=== PATIENT | female | born 1975 | race Caucasian/White ===

== ENCOUNTER 2017-09-18 10:31 | Emergency (ER) | payer BC ==
[~2017-09-18 10:31] MED LIST: AMOX500C PO
--- NOTE | 2017-09-18 11:39 | PD ---
HPI Chief Complaint low back pain and vaginal bleeding Date Seen: Sep 18, 2017 Time Seen: 11:00 Travel History International Travel<30 Days: No Contact w/Intl Traveler<30Days: No Known Affected Area: No History of Present Illness HPI Ms. Phelan is a 42 yo F patient of [facility] at 36 3/7 weeks who presents with to OB ED for evaluation of vaginal bleeding, abdominal cramping, and low back pain. Patient states that she noticed "gush" of bright red vaginal bleeding at 7:30am today; she estimates 3 tablespoons of blood. Patient has not had persistent bleeding since; she describes this being the first time that she has noticed vaginal bleeding. After this episode, patient began to have low back pain and frequent abdominal cramping which she describes as similar to menstrual cramps. Patient also reports feeling abdominal contractions frequently. No vaginal discharge or loss of vaginal fluid. Patient also reports decreased movement beginning this morning. Patient does not report headache, chest pain, shortness of breath, nausea, abnormal bowel movements, or abnormal urination. Patient reports normal course thus far; she recently moved from [place]. Patient states that she had normal records [per [facility] records, antibody screen not found]. Patient had prior CS after failure to progress. Patient had US yesterday; anterior placenta without evidence of previa. No pathology appreciated. Normal ALEX. Weeks Gestation: 36 Para: 1 : 2 History Past Medical History Narrative Medical Advanced maternal age Obstetric History Obstetric History prior CS at ~41 weeks for failure to progress Past Surgical History Narrative Surgical CS x1 Family History Family History: Negative Social History Alcohol Use: No Tobacco Use: No Substance Abuse: No Allergies-Medications (Allergen,Severity, Reaction): Coded Allergies: No Known Allergies (Unverified , 09/12/17) Home Meds Active Scripts Amoxicillin (Amoxicillin) 500 Mg Cap, 500 MG PO TID for Infection, #21 CAP 0 Refills Prov:Preston De MD 09/16/17 Review of Systems General / Constitutional: No: Fever, Chills Eyes: Blurred Vision (chronic ) HENT: No: Headaches Cardiovascular: No: Palpitations, Syncope Respiratory: No: Short of Breath Gastrointestinal: Abdominal Pain (cramping, like menstruation), No: Nausea, Vomiting Genitourinary: No: Urgency, Dysuria Skin: No Rash, No Itching Neurologic: No: Weakness, Dizziness Psychiatric: No: Anxiety, Depression Physical Exam T 97.7 BP 121/78 HR 98 RR 18 Narrative GENERAL: Well-nourished, well-developed patient. SKIN: Warm and dry. HEAD: Normocephalic and atraumatic. EYES: No scleral icterus. No injection or drainage. CARDIOVASCULAR: Regular rate and rhythm without murmurs. Normal perfusion RESPIRATORY: CTAB, normal rate BREASTS: Bilateral exam showed no masses , no retractions, no nipple discharge. ABDOMEN/GI: Abdomen soft, non-tender, bowel sounds present, no rebound, no guarding Gravid EXTREMITIES: No cyanosis or edema. NEUROLOGICAL: Awake and alert. Motor and sensory function grossly within normal limits. GENITOURINARY: External Genitalia: intact and normal in appearance Vagina- some brownish blood in vault, bloody mucus near cervix. No active bleeding seen Cervix: Dilatation: closed Effacement: non-effaced Station: -3 Presentation: V Membranes: Intact Uterine Contractions: irregular to q3 min FHT's: Category: 1 Baseline: 135 Reactive: Y Variability: Mod Decels: None Data Data Vital Signs Reviewed: Yes Orders Orders Vital Signs (Adult) .ON ADMISSION (09/18/17 11:24) ^ Labor Status (09/18/17 11:24) ^ Non Stress Test (09/18/17 11:24) Lactated Ringer's 1000 Ml Inj (Lr 1000 M (09/18/17 11:24) Fentanyl Inj (Fentanyl Inj) (09/18/17 11:30) Us Ob Limited (09/18/17 ) Complete Blood Count With Diff (09/18/17 11:27) Type And Screen (09/18/17 11:27) MDM Medical Record Reviewed: Yes Narrative Course / MDM Ms. Phelan is a 42 yo F patient of [facility] at 36 3/7 weeks who presents with to OB ED for evaluation of vaginal bleeding, abdominal cramping, and low back pain -Normal VS -No active bleeding, cervix closed, some old blood in vaginal cavity -Cat 1 rhythm -irregular to q 3min contractions on EFM -No evidence of previa on US from 09/16 -Prior CS Assessment/Plan: Impression: third trimester bleeding -Will continue to monitor on CTG/EFM -Will check US to assess placenta -Will check CBC, type and screen -Will give patient IVF and Fentanyl for pain control Interval History: US without abruption; reassuring CBC- Hgb 11.3 Type and screen- O+ blood; antibody negative -Case discussed with MFM -After case reviewed with MFM, discussed with patient that if she continues to have regular contractions, it would likely be winslow to pursue repeat section. Assuming cessation of contractions, patient could continue to rest at home with plan to return to OB ED with any additional vaginal bleeding -patient was monitored for several additional hours; her contractions spaced out and became irregular after IVF and Fentanyl. No additional bleeding Updated Plan: -Discussed with patient that due to her Gestational age, spacing of contractions , and lack of additional bleeding, patient deemed safe for discharge home for rest and hydration; patient instructed to return to OB ED with any concerns for worsening contractions, additional bleeding, concern for her fetus, or any other concerns Diagnosis Diagnosis: Primary Impression: Third trimester bleeding Additional Impression: 36 weeks gestation of Disposition: 01 DISCHARGE HOME Condition: Stable Patient Instructions: Abdominal Pain in (ED), General Instructions, Movement (ED), Early Labor Signs (ED) Bhavesh Krishnamurthy MD, R3 Sep 18, 2017 11:39
[2017-09-18 11:59] LABS: BASOPHIL % 0.3 % (0.0-2.0); EOSINOPHIL # 0.1 TH/MM3 (0-0.4); EOSINOPHIL % 1.1 % (0.0-4.0); HEMATOCRIT 34.2 % (35.0-46.0); HEMOGLOBIN 11.3 GM/DL (11.6-15.3); LYMPH % 23.8 % (9.0-44.0); LYMPHOCYTE # 2.5 TH/MM3 (1.0-4.8); MEAN CELL VOLUME 86.1 FL (80.0-100.0); MEAN CORPUSCULAR HEMOGLOBIN 28.4 PG (27.0-34.0); MEAN PLATELET VOLUME 9.1 FL (7.0-11.0); MONOCYTE # 0.7 TH/MM3 (0-0.9); NEUT % 67.8 % (16.0-70.0); PLATELET COUNT 233 TH/MM3 (150-450); RED BLOOD COUNT 3.97 MIL/MM3 (4.00-5.30); RED CELL DISTRIBUTION WIDTH 14.5 % (11.6-17.2); WHITE BLOOD COUNT 10.3 TH/MM3 (4.0-11.0)
[2017-09-18] MEDS: LACTATED RINGER'S 1000 ML INJ 1,000 ML IV SCH ×2 (13:40→15:24)
--- NOTE | 2017-09-18 16:51 | PD.CONS ---
HPI Chief Complaint Repeat consultation Date Seen: Sep 18, 2017 Time Seen: 16:45 Travel History International Travel<30 Days: No Contact w/Intl Traveler<30Days: No Known Affected Area: No History of Present Illness HPI Patient is a 42-year-old white female now at 36-1/2 weeks of is having a repeat consultation today as well as her visit with OB ED, here today she's had a reactive NST all day she was here for some minimal vaginal bleeding. Ultrasound was done which showed a biophysical 8 of 8 and reactive NST with -10 of 10 with no sign of abruption or placenta previa on ultrasound. Weeks Gestation: 36 Para: 1 : 2 History Obstetric History Obstetric History done in [place] Past Surgical History Narrative Surgical Social History Alcohol Use: No Tobacco Use: No Substance Abuse: No Allergies-Medications (Allergen,Severity, Reaction): Coded Allergies: No Known Allergies (Unverified , 09/12/17) Home Meds Active Scripts Amoxicillin (Amoxicillin) 500 Mg Cap, 500 MG PO TID for Infection, #21 CAP 0 Refills Prov:Preston De MD 09/16/17 Review of Systems General / Constitutional: No: Fever, Weight Gain, Chills, Other Eyes: No: Diploplia, Blurred Vision, Visual changes, Pain, Photophobia HENT: No: Headaches, Vertigo, Lightheadedness Cardiovascular: No: Irregular Rhythm, Chest Pain or Discomfort, Palpitations, Tachycardia, Syncope, Varicosities, Edema, Cyanosis Respiratory: No: Cough, Short of Breath, Other Gastrointestinal: No: Nausea, Vomiting, Diarrhea Genitourinary: Vaginal Bleeding, No: Decreased Urinary Output, Oliguria Musculoskeletal: No: Limited ROM, Weakness, Cramping, Edema, Pain Skin: No Rash, No Itching, No Dryness, No Lumps, No Change in Pigmentation, No Change in Nails, No Alopecia, No Lesions Neurologic: No: Weakness, Dizziness, Syncope, Focal Abnormalities, Coordination Problem, Headache, Slurred Speech, Seizures Psychiatric: No: Depression, Suicidal Ideations, Homicidal Ideation Endocrine: No: Heat Intolerance, Cold Intolerance, Polydipsia, Polyuria, Other Physical Exam Narrative GENERAL: Well-nourished, well-developed patient. SKIN: Warm and dry. HEAD: Normocephalic and atraumatic. EYES: No scleral icterus. No injection or drainage. ENT: No nasal drainage noted. Mucous membranes pink. Airway patent. NECK: Supple, trachea midline. No JVD. CARDIOVASCULAR: Regular rate and rhythm without murmurs, gallops, or rubs. RESPIRATORY: Breath sounds equal bilaterally. No accessory muscle use. BREASTS: Bilateral exam showed no masses , no retractions, no nipple discharge. ABDOMEN/GI: Abdomen soft, non-tender, bowel sounds present, no rebound, no guarding Gravid to [-36] weeks size Fundal Height: [-36] GENITOURINARY: External Genitalia: intact and normal in appearance BUS glands: [-] Cervix: [-closed] Dilatation: [closed-] Effacement: [thick-] Station: [-3] Presentation: [-vtx] Membranes: [intact ] Uterine Contractions: [-irreg] FHT's: Category: [1-] Baseline: [133-] Reactive: [-R] Variability: [mod-] Decels: [-none] EXTREMITIES: No cyanosis or edema. BACK: Nontender without obvious deformity. No CVA tenderness. NEUROLOGICAL: Awake and alert. Motor and sensory grossly within normal limits. Five out of 5 muscle strength in all muscle groups. Normal speech. Data Data Orders Orders Vital Signs (Adult) .ON ADMISSION (09/18/17 11:24) ^ Labor Status (09/18/17 11:24) ^ Non Stress Test (09/18/17 11:24) Lactated Ringer's 1000 Ml Inj (Lr 1000 M (09/18/17 11:24) Fentanyl Inj (Fentanyl Inj) (09/18/17 11:30) Us Ob Limited (09/18/17 ) Complete Blood Count With Diff (09/18/17 11:27) Type And Screen (09/18/17 11:27) Labs Laboratory Tests Test 09/18/17 11:30 White Blood Count 10.3 Red Blood Count 3.97 Hemoglobin 11.3 Hematocrit 34.2 Mean Corpuscular Volume 86.1 Mean Corpuscular Hemoglobin 28.4 Mean Corpuscular Hemoglobin Concent 33.0 Red Cell Distribution Width 14.5 Platelet Count 233 Mean Platelet Volume 9.1 Neutrophils (%) (Auto) 67.8 Lymphocytes (%) (Auto) 23.8 Monocytes (%) (Auto) 7.0 Eosinophils (%) (Auto) 1.1 Basophils (%) (Auto) 0.3 Neutrophils # (Auto) 7.0 Lymphocytes # (Auto) 2.5 Monocytes # (Auto) 0.7 Eosinophils # (Auto) 0.1 Basophils # (Auto) 0.0 CBC Comment DIFF FINAL Differential Comment MDM Interpretation(s) Patient is a 42-year-old white female previous now 36-37 weeks has a repeat in the plan for this , her EDC is 10/13/17 Plan Plan repeat on 10/08/17 which be 39 weeks and 2 days Diagnosis: previous Disposition: 01 DISCHARGE HOME Condition: Stable Patient Instructions: General Instructions Departure Forms: Tests/Procedures Pedro Be II, MD Sep 18, 2017 16:51
[2017-09-23] MEDS ORDERED: AMOX250C3 PO (15:23)
== END 2017-09-18 17:11 | disposition home or self-care (01) ==
LOC: HOBED 10:31
DX: O46.93 Antepartum hemorrhage, unspecified, third trimester (principal); Z3A.36 36 weeks gestation of pregnancy
CPT/HCPCS: 59025; 76815; 85025; 86850; 86900; 86901; 96361; 96374; 99284; J3010; J7120

== ENCOUNTER 2017-10-08 08:30 | Inpatient (IN) | payer BC ==
[~2017-10-08 08:30] MED LIST changes: +AMOX250C3 PO; -AMOX500C PO
--- NOTE | 2017-10-08 08:53 | HHI.HP ---
History & Physical H&P RECORDS MANAGEMENT CLERK Consult (Detail) Patient Name: Shelly Phelan Unit Number: [id number] Date of : 1975 Patient Status: Departed Emergency Room Attending Doctor: Pedro Be II, MD HPI HPI Chief Complaint Repeat consultation Date Seen: Sep 18, 2017 Time Seen: 16:45 Travel History International Travel<30 Days: No Contact w/Intl Traveler<30Days: No Known Affected Area: No History of Present Illness HPI Patient is a 42-year-old white female now at 39-1/2 weeks of is having a repeat today , here today she's had a reactive NST . Ultrasound was done which showed a biophysical 8 of 8 and reactive NST with -10 of 10 with no sign of abruption or placenta previa on ultrasound. Weeks Gestation: 39 Para: 1 : 2 History (Limited) History Obstetric History Obstetric History done in [place] Past Surgical History Narrative Surgical Social History Alcohol Use: No Tobacco Use: No Substance Abuse: No Allergies-Medications Allergies-Medications (Allergen,Severity, Reaction): Coded Allergies: No Known Allergies (Unverified , 09/12/17) Home Meds Active Scripts Amoxicillin (Amoxicillin) 500 Mg Cap, 500 MG PO TID for Infection, #21 CAP 0 Refills Prov:Preston De MD 09/16/17 ROS Review of Systems General / Constitutional: No: Fever, Weight Gain, Chills, Other Eyes: No: Diploplia, Blurred Vision, Visual changes, Pain, Photophobia HENT: No: Headaches, Vertigo, Lightheadedness Cardiovascular: No: Irregular Rhythm, Chest Pain or Discomfort, Palpitations, Tachycardia, Syncope, Varicosities, Edema, Cyanosis Respiratory: No: Cough, Short of Breath, Other Gastrointestinal: No: Nausea, Vomiting, Diarrhea Genitourinary: Vaginal Bleeding, No: Decreased Urinary Output, Oliguria Musculoskeletal: No: Limited ROM, Weakness, Cramping, Edema, Pain Skin: No Rash, No Itching, No Dryness, No Lumps, No Change in Pigmentation, No Change in Nails, No Alopecia, No Lesions Neurologic: No: Weakness, Dizziness, Syncope, Focal Abnormalities, Coordination Problem, Headache, Slurred Speech, Seizures Psychiatric: No: Depression, Suicidal Ideations, Homicidal Ideation Endocrine: No: Heat Intolerance, Cold Intolerance, Polydipsia, Polyuria, Other Physical Exam Physical Exam Narrative GENERAL: Well-nourished, well-developed patient. SKIN: Warm and dry. HEAD: Normocephalic and atraumatic. EYES: No scleral icterus. No injection or drainage. ENT: No nasal drainage noted. Mucous membranes pink. Airway patent. NECK: Supple, trachea midline. No JVD. CARDIOVASCULAR: Regular rate and rhythm without murmurs, gallops, or rubs. RESPIRATORY: Breath sounds equal bilaterally. No accessory muscle use. BREASTS: Bilateral exam showed no masses , no retractions, no nipple discharge. ABDOMEN/GI: Abdomen soft, non-tender, bowel sounds present, no rebound, no guarding Gravid to [-39] weeks size Fundal Height: [-39] GENITOURINARY: External Genitalia: intact and normal in appearance BUS glands: [-] Cervix: [-closed] Dilatation: [closed-] Effacement: [thick-] Station: [-3] Presentation: [-vtx] Membranes: [intact ] Uterine Contractions: [-irreg] FHT's: Category: [1-] Baseline: [133-] Reactive: [-R] Variability: [mod-] Decels: [-none] EXTREMITIES: No cyanosis or edema. BACK: Nontender without obvious deformity. No CVA tenderness. NEUROLOGICAL: Awake and alert. Motor and sensory grossly within normal limits. Five out of 5 muscle strength in all muscle groups. Normal speech. Data Data Data Orders Orders Vital Signs (Adult) .ON ADMISSION (09/18/17 11:24) ^ Labor Status (09/18/17 11:24) ^ Non Stress Test (09/18/17 11:24) Lactated Ringer's 1000 Ml Inj (Lr 1000 M (09/18/17 11:24) Fentanyl Inj (Fentanyl Inj) (09/18/17 11:30) Us Ob Limited (09/18/17 ) Complete Blood Count With Diff (09/18/17 11:27) Type And Screen (09/18/17 11:27) Labs Laboratory Tests Test 09/18/17 11:30 White Blood Count 10.3 Red Blood Count 3.97 Hemoglobin 11.3 Hematocrit 34.2 Mean Corpuscular Volume 86.1 Mean Corpuscular Hemoglobin 28.4 Mean Corpuscular Hemoglobin Concent 33.0 Red Cell Distribution Width 14.5 Platelet Count 233 Mean Platelet Volume 9.1 Neutrophils (%) (Auto) 67.8 Lymphocytes (%) (Auto) 23.8 Monocytes (%) (Auto) 7.0 Eosinophils (%) (Auto) 1.1 Basophils (%) (Auto) 0.3 Neutrophils # (Auto) 7.0 Lymphocytes # (Auto) 2.5 Monocytes # (Auto) 0.7 Eosinophils # (Auto) 0.1 Basophils # (Auto) 0.0 CBC Comment DIFF FINAL Differential Comment MDM MDM Interpretation(s) Patient is a 42-year-old white female previous now 39 weeks for a repeat in the plan for this , her EDC is 10/13/17 Plan Plan repeat on 10/08/17 which be 39 weeks and 2 days Diagnosis: previous Disposition: ADMIT for RCS Condition: Stable Patient Instructions: General Instructions Departure Forms: Tests/Procedures Pedro Be II, MD 2017 0900 Pedro Be II, MD Oct 08, 2017 08:53
[2017-10-08] MEDS ORDERED: LACTATED RINGER'S 1000 ML INJ 1,000 ML IV ONE ×3 (08:55→12:00)
[2017-10-08] MEDS ORDERED: LACTATED RINGER'S 1000 ML INJ 1,000 ML IV SCH ×2 (09:25→18:17)
[2017-10-08 09:42] LABS: AUTOMATED NEUTROPHIL # 5.5 TH/MM3 (1.8-7.7); BASOPHIL % 0.3 % (0.0-2.0); EOSINOPHIL # 0.1 TH/MM3 (0-0.4); EOSINOPHIL % 1.2 % (0.0-4.0); HEMOGLOBIN 11.5 GM/DL (11.6-15.3); LYMPH % 29.2 % (9.0-44.0); LYMPHOCYTE # 2.6 TH/MM3 (1.0-4.8); MEAN CELL VOLUME 84.2 FL (80.0-100.0); MEAN CORPUSCULAR HEMOGLOBIN 28.4 PG (27.0-34.0); MEAN CORPUSCULAR HGB CONC 33.7 % (32.0-36.0); MEAN PLATELET VOLUME 8.7 FL (7.0-11.0); MONO % 8.2 % (0.0-8.0); MONOCYTE # 0.7 TH/MM3 (0-0.9); NEUT % 61.1 % (16.0-70.0); PLATELET COUNT 289 TH/MM3 (150-450); RED BLOOD COUNT 4.04 MIL/MM3 (4.00-5.30); RED CELL DISTRIBUTION WIDTH 15.2 % (11.6-17.2)
[2017-10-08 09:47] LABS: BILIRUBIN, URINE NEG (NEG); BLOOD, URINE NEG (NEG); GLUCOSE,URINE NEG (NEG); KETONE, URINE NEG (NEG); MUCUS URINE FEW /lpf (OCC); NITRITE,URINE NEG (NEG); PH, URINE 6.5 (5.0-8.5); SQUAMOUS EPITHELIAL CELL URINE 19 /hpf (0-5); URINE COLOR YELLOW (YELLW/STRAW); URINE LEUKOCYTE ESTERASE SMALL (NEG)
[2017-10-08] MEDS ORDERED: ceFAZolin 2 GM PREMIX 50 ML IV SCH (10:00)
[2017-10-08] MEDS ORDERED: OB CCAP2 (10:09)
[2017-10-08] MEDS ORDERED: CITRIC ACID-SODIUM CITRATE LIQ 30 ML UDC PO SCH (10:30)
[2017-10-08] MEDS ORDERED: MORPHINE SULFATE PF 5 MG/10 ML VIAL ONE (10:36)
[2017-10-08] MEDS ORDERED: ACETAMINOPHEN 1000 MG/100 ML 100 ML IV ONE (10:36)
--- NOTE | 2017-10-08 10:44 | HHI.PR ---
Subjective Remarks The patient is a 42-year-old 3 para 1011, IUP at 39.2. The patient is here for repeat delivery. We discussed the risks, benefits, and alternatives at length including but not limited to pain, infection, bleeding, injury to other organs like the bladder/bowel/nerves/vessels, injury to the baby , need for blood transfusion, need for hysterectomy, need for repeat operation, wound infection/breakdown and other possible risks. All the patient's questions were answered and consent had previously been signed. The patient has expressed interest in permanent surgical sterilization. However, she reports that she has not thought about this before today but she believes she does not desire any further biological children. We discussed the risks of permanent surgical sterilization including but not limited to the permanent irreversible nature of the procedure, tubal regret, failure of approximately 1% with the risk of ectopic , and other possible risks. We discussed alternatives including vasectomy with a similar failure rate but more easily reversible. We discussed long-term reversible contraceptive methods like the Mirena. We discussed in brief other shorter term methods. The patient's and her have decided to defer her tubal ligation at this time. We discussed that if she changes her mind in the future, she could be scheduled to the clinic for an interval tubal ligation. We discussed that if she is not 100 % sure it is better to wait at this time. Objective Result Diagram: 10/08/17 0925 Debbi Hagen MD Oct 08, 2017 10:44
[2017-10-08] MEDS ORDERED: EPIDURAL-NALOXONE HCL 0.4 MG/ML AMP IV PUSH PRN (11:00)
[2017-10-08] MEDS ORDERED: EPIDURAL-DIPHENHYDRAMINE HCL 50 MG/ML VIAL IV PUSH PRN (11:00)
[2017-10-08] MEDS ORDERED: EPIDURAL-NO SYSTEMIC NARCOTICS PRN (11:00)
[2017-10-08] MEDS ORDERED: EPIDURAL-DO NOT ADMINISTER ANTICOAGULANTS PRN (11:00)
[2017-10-08] MEDS ORDERED: EPIDURAL-DIPHENHYDRAMINE HCL 50 MG CAP PO PRN (11:00)
[2017-10-08] MEDS ORDERED: ePHEDrine/NS 25 MG/5 ML SYRINGE IV ONE (12:00)
[2017-10-08] MEDS ORDERED: OXYTOCIN 10 UNIT/ML AMP IV ONE (12:00)
[2017-10-08] MEDS ORDERED: ONDANSETRON HCL 4 MG/2 ML VIAL IV ONE (12:00)
[2017-10-08] MEDS ORDERED: DEXAMETHASONE SOD PHOS 4 MG/ML VIAL IV ONE (12:00)
[2017-10-08] MEDS ORDERED: PHENYLEPH/NS 1000 MCG/10 ML SYR IV ONE (12:00)
--- NOTE | 2017-10-08 13:16 | PD.OB.DELI ---
Procedure Note Section Procedure Performed by Debbi Hagen Procedure: Repeat Low Transverse Sec Indication for delivery: Desired elective repeat Previous condition: None Informed consent obtained: For anesthesia, For procedure Confirmed correct: Patient, Procedure, Site, Time-out taken Anesthesia: Spinal Medication prior to procedure: As documented in eMAR Monitoring during procedure: Blood pressure monitoring, tar leveler, doppler, Pulse oximetry Urinary catheter: Inserted using sterile technique, To dependent drainage, ml urine output Sterile preparation: Other (Chloraprep) Position: Supine with wedge to left side Operative Features Skin Incision: Pfannenstiel Uterine Incision: Low transverse w/knife / blunt ext Membranes Ruptured: Artificially Presentation: Occiput posterior Delivery date: Oct 08, 2017 Delivery time: 11:16 Delivery of : Uneventful : Male One Minute : 9 Five Minute : 9 Weight: 7#9oz Status of infant: Viable, Cord blood Placenta delivered: Intact Medications: Antibiotics, Oxytocin Estimated blood loss: 750cc Procedure tolerated: Well Maternal Condition: Stable Condition: Stable Procedure in detail See dictation Debbi Hagne MD Oct 08, 2017 13:16
[2017-10-08] MEDS ORDERED: ONDANSETRON HCL 4 MG/2 ML VIAL IV PUSH PRN (14:00)
[2017-10-08] MEDS ORDERED: SIMETHICONE 80 MG CHEWABLE TAB PO PRN (14:00)
[2017-10-08] MEDS ORDERED: SODIUM CHLORIDE 0.9% FLUSH 10 ML FLUSH IV FLUSH PRN (14:00)
[2017-10-08] MEDS ORDERED: ACETAMINOPHEN 325 MG TAB PO PRN (14:00)
[2017-10-08] MEDS ORDERED: OXYTOCIN 30 UNITS-500ML PREMIX 500 ML IV ONE (14:00)
[2017-10-08] MEDS ORDERED: ACETAMINOPHEN 1000 MG/100 ML 100 ML IV SCH (14:00)
[2017-10-08 14:05] VITALS: BP 100/62; PULSE 64; RESP 15; TEMP 97.6; O2SAT 98
[2017-10-08 15:56] VITALS: RESP 16
[2017-10-08 20:00] VITALS: BP 109/71; PULSE 65; RESP 18; TEMP 97.9; O2SAT 94
[2017-10-08] MEDS ORDERED: SODIUM CHLORIDE 0.9% FLUSH 10 ML FLUSH IV FLUSH SCH (21:00)
[2017-10-08] MEDS ORDERED: ZOLPIDEM TARTRATE 5 MG TAB PO PRN (21:00)
[2017-10-08] MEDS: oxyCODONE/ACETAMINOPHEN 5 MG/325 MG TAB PO PRN (21:32)
[2017-10-08] MEDS ORDERED: OXYTOCIN 30 UNITS-500ML PREMIX 500 ML IV PRN (23:30)
[2017-10-09] VITALS: BP 95/64; PULSE 76
[2017-10-09 00:01] VITALS: RESP 18; TEMP 98.4; O2SAT 97
[2017-10-09] MEDS: oxyCODONE/ACETAMINOPHEN 5 MG/325 MG TAB PO PRN ×5 (02:28→20:45)
[2017-10-09] MEDS: DOCUSATE SODIUM 50 MG/SENNA 8.6 MG TAB PO PRN ×2 (02:28→16:25)
[2017-10-09] MEDS: IBUPROFEN 600 MG TAB PO PRN ×3 (02:28→16:25)
[2017-10-09 04:00] VITALS: BP 109/68; PULSE 65; RESP 18; TEMP 98; O2SAT 98
[2017-10-09 05:59] LABS: AUTOMATED NEUTROPHIL # 8.1 TH/MM3 (1.8-7.7); BASOPHIL % 0.2 % (0.0-2.0); EOSINOPHIL % 0.3 % (0.0-4.0); HEMATOCRIT 23.2 % (35.0-46.0); HEMOGLOBIN 7.7 GM/DL (11.6-15.3); LYMPH % 22.2 % (9.0-44.0); LYMPHOCYTE # 2.6 TH/MM3 (1.0-4.8); MEAN CELL VOLUME 84.6 FL (80.0-100.0); MEAN CORPUSCULAR HGB CONC 33.1 % (32.0-36.0); MONO % 9.2 % (0.0-8.0); MONOCYTE # 1.1 TH/MM3 (0-0.9); NEUT % 68.1 % (16.0-70.0); PLATELET COUNT 235 TH/MM3 (150-450); RED BLOOD COUNT 2.74 MIL/MM3 (4.00-5.30); WHITE BLOOD COUNT 11.9 TH/MM3 (4.0-11.0)
[2017-10-09 08:00] VITALS: BP 99/62; PULSE 80; RESP 16; TEMP 98.1
--- NOTE | 2017-10-09 08:55 | HHI.OB ---
Subjective Post Operative Day: 1 Remarks Postoperative day number 1. AFVSS overnight. Pain minimal. Incision not draining. Decreased lochia. Denies dysuria. No breast tenderness. She is feeding the baby via breast. Appetite good. No nausea or vomiting. no flatus. no bowel movement. Ambulating well. Denies calf pain, shortness of breath, or cough. Otherwise, she is doing well this morning and has no other complaints. Objective Vitals/I&O Vital Signs Date Time Temp Pulse Resp B/P (MAP) Pulse Ox O2 Delivery O2 Flow Rate FiO2 10/09/17 08:00 98.1 80 16 99/62 (74) 10/09/17 04:00 98.0 65 18 98 10/09/17 04:00 109/68 (82) 10/09/17 00:01 98.4 10/09/17 00:01 18 97 10/09/17 00:00 76 95/64 (74) 10/08/17 20:00 97.9 94 10/08/17 20:00 65 18 10/08/17 20:00 109/71 (84) 10/08/17 15:56 16 10/08/17 14:05 97.6 98 10/08/17 14:05 64 15 100/62 (75) Result Diagram: 10/09/17 0513 Objective Remarks GENERAL: Well-nourished, well-developed patient. CARDIOVASCULAR: Regular rate and rhythm without murmurs, gallops, or rubs. RESPIRATORY: Breath sounds equal bilaterally. No accessory muscle use. ABDOMEN/GI: Abdomen soft, non-tender, bowel sounds present. Incision: Clean, dry and intact. Fundus: Firm, non-tender at umbilicus. GENITOURINARY: Light to moderate bleeding. EXTREMITIES: No cyanosis or edema, non-tender, without signs of DVT. Medications and IVs Current Medications Medications (Trade) Dose Ordered Sig/Chelsi Route Start Time Stop Time Status Last Admin Cefazolin Sodium/ Dextrose 50 ml @ 100 mls/hr [facility] [employer] IV 10/08/17 10:00 10/12/17 09:59 (Bicitra Liq) 30 ml [employer] PO 10/08/17 10:30 10/12/17 10:29 Lactated Ringer's 1,000 ml @ 100 mls/hr Q10H IV 10/08/17 18:17 2/7/18 14:16 Oxytocin 500 ml @ 100 mls/hr UNSCH X1 PRN IV 10/08/17 23:30 10/09/17 23:29 (NS Flush) 2 ml BID IV FLUSH 10/08/17 21:00 (NS Flush) 2 ml UNSCH PRN IV FLUSH 10/08/17 14:00 (Mylicon Chew) 80 mg QID PRN PO 10/08/17 14:00 (Tylenol) 650 mg Q6H PRN PO 10/08/17 14:00 (Motrin) 600 mg Q6H PRN PO 10/08/17 14:00 10/09/17 02:28 (Percocet 5-325 Mg) 1 tab Q4H PRN PO 10/08/17 14:00 10/09/17 06:16 (Percocet 5-325 Mg) 2 tab Q4H PRN PO 10/08/17 14:00 (Jayde-Colace) 2 tab Q12H PRN PO 10/08/17 14:00 10/09/17 02:28 (Ambien) 5 mg HS PRN PO 10/08/17 21:00 (M-M-R Ii Inj) 0.5 ml ONCE ONCE SQ 10/09/17 16:00 10/09/17 16:01 (Boostrix Inj) 0.5 ml ONCE ONCE IM 10/09/17 16:00 10/09/17 16:01 (Zofran Inj) 4 mg Q6H PRN IV PUSH 10/08/17 14:00 Miscellaneous Information NO SYSTEMIC NARCOTICS TO BE GIVEN FO... UNSCH PRN .XX 10/08/17 11:00 10/09/17 10:59 (Narcan Inj) 0.4 mg UNSCH PRN IV PUSH 10/08/17 11:00 10/09/17 10:59 (Benadryl Inj) 25 mg Q6H PRN IV PUSH 10/08/17 11:00 10/09/17 10:59 (Benadryl) 50 mg Q6H PRN PO 10/08/17 11:00 10/09/17 10:59 Miscellaneous Information ALL NURSING DEPARTMENTS UNSCH PRN .XX 10/08/17 11:00 10/09/17 10:59 Assessment/Plan Problem List: (1) S/P repeat low transverse ICD Codes: Z98.891 - History of uterine scar from previous surgery Status: Acute Assessment and Plan 42 y/o female who is POD# 1 s/p repeat C/S. -Continue routine care. -Percocet and Motrin PRN pain. -Encouraged OOB. Advised pelvic rest for 6 wks. Will need a f/u appt. in 1 wk for incision check. -Re: ctrl, she would like Mirena. -D/c in 1-2 more days. Ely Garcia MD R1 Oct 09, 2017 08:55
--- NOTE | 2017-10-09 09:32 | MP ---
cc: DEBBI HAGEN MD DATE OF SURGERY 10/08/2017 PREOPERATIVE DIAGNOSIS 1. Intrauterine at 39.2. 2. Advanced maternal age. 3. Primary delivery x1. 4. History of right lower uterine segment extension. 5. Late transfer care. POSTOPERATIVE DIAGNOSIS 1. Intrauterine at 39.2. 2. Advanced maternal age. 3. Primary delivery x1. 4. History of right lower uterine segment extension. 5. Late transfer care. PROCEDURE PERFORMED 1. Repeat low transverse section with two-layer closure and no extension by Pfannenstiel skin incision. 2. Placement of self-containing wound retractor. 3. Placement of hemostatic agent with Diane. DESCRIPTION OF FINDINGS Viable male infant in a cephalic presentation with Apgars 9 and 9, weighing 7 pounds 9 ounces/3440 grams. The patient had grossly normal maternal anatomy with normal-appearing fallopian tubes, uterus and ovaries. ATTENDING SURGEON Dr. Debbi Hagen ASSISTANTS Lakia Mata. INDICATIONS The patient is a 42-year-old, 3, para 1-0-1-1, who presented at 39 weeks and 2 days for a repeat delivery. SPECIMENS REMOVED Placenta. ESTIMATED BLOOD LOSS 750 cc. URINE OUTPUT 100 cc clear urine at the end of the procedure. IV FLUID 1700 cc lactated Ringer's. PROCEDURE DESCRIPTION After obtaining informed consent the patient was taken to the operating room with reassuring heart tones. She underwent spinal anesthesia without difficulty and was placed in dorsal supine position. A Barnes catheter was placed under sterile conditions and reassuring heart tones confirmed. After confirming adequate anesthesia the patient was prepped and draped in normal sterile fashion. A timeout procedure was performed and adequate anesthesia once again confirmed. A Pfannenstiel skin incision was made with a scalpel and carried down to the level of the fascia. The fascia was nicked in the midline with the scalpel and the fascial incision extended laterally with curved Ramachandran scissors. Choco clamps were applied to the superior aspect of the fascial incision which was dissected off the overlying rectus muscles bluntly with the curved Ramachandran scissors. Choco clamps were applied to the inferior aspect of the fascial incision which was dissected off in a similar fashion. The rectus muscles were in the midline and the peritoneum entered bluntly. The peritoneal incision was extended bluntly. The Claudio self-containing wound retractor was placed. The vesicouterine peritoneum was identified, grasped with pickups and entered sharply with Metzenbaum scissors. This incision was extended laterally and the bladder flap created digitally. The lower uterine segment was incised with a scalpel and a hysterotomy created bluntly. The hysterotomy was extended bluntly. The vertex was elevated to the level of the hysterotomy and delivered atraumatically followed by atraumatic delivery of the remainder of the . The nose and mouth were suctioned with the bulb suction and after a delay of 45 seconds the cord was doubly clamped and cut. The vigorous was passed off to the awaiting team. The placenta was removed manually and the uterus cleared of all clots and debris. The hysterotomy was repaired with #1 chromic in a running lock fashion. The second layer of the same was used in an imbricating fashion after which excellent hemostasis was noted. The Claudio self-containing wound retractor was removed and the hysterotomy re-inspected. Due to the friable nature of the edge of the hysterotomy a hemostatic agent with Diane was placed. The peritoneum was re-approximated with 2-0 Vicryl in a running fashion. The rectus muscles were examined and noted to be hemostatic, however, appeared friable due to the dissection from adhesiolysis. Hemostatic agent was placed and excellent hemostasis noted. The fascia was re-approximated with #1 Vicryl in a running fashion. The subcutaneous tissue was irrigated with warm normal saline and noted to be hemostatic. The subcutaneous tissue was re-approximated with 2-0 Vicryl. The skin edges were re-approximated with 3-0 Monocryl in a subcuticular fashion. Excellent hemostasis and cosmesis were noted. Dermabond was placed followed by placement of a pressure dressing. All sponge, lap and needle counts were correct x4. I performed the entire procedure. The patient was taken to PACU in stable condition. MD SUKHJINDER Pascual/VERONICA /10:39 PM /9:06 AM
[2017-10-09] MEDS ORDERED: DIPHTH/TETANUS/ACEL PERTUSSIS (BOOSTER) 0.5 ML VIAL/PFS IM ONE (16:00)
[2017-10-09] MEDS ORDERED: MEASLES, MUMPS, RUBELLA VACCINE 0.5 ML VIAL SQ ONE (16:00)
[2017-10-09 20:00] VITALS: BP 97/66; PULSE 96; RESP 20; TEMP 98.4; O2SAT 98
[2017-10-10] MEDS: IBUPROFEN 600 MG TAB PO PRN ×3 (00:49→13:26)
[2017-10-10] MEDS: oxyCODONE/ACETAMINOPHEN 5 MG/325 MG TAB PO PRN ×5 (00:49→17:23)
[2017-10-10] MEDS ORDERED: PERI PO (07:22)
[2017-10-10] MEDS ORDERED: IBUP-232 PO (07:22)
[2017-10-10] MEDS ORDERED: OXYC1TAB63 PO (07:22)
[2017-10-10] MEDS: DOCUSATE SODIUM 50 MG/SENNA 8.6 MG TAB PO PRN (07:47)
[2017-10-10 08:00] VITALS: BP 109/67; PULSE 74; RESP 16; TEMP 98.3
--- NOTE | 2017-10-10 08:07 | HHI.OB ---
Subjective Post Operative Day: 2 Remarks Postoperative day number 2. AFVSS overnight. Pain well-controlled. Incision not draining. Decreased lochia. Denies dysuria. No breast tenderness. She is feeding the baby via breast. Appetite good. No nausea or vomiting. + flatus. no bowel movement. Ambulating well. Denies calf pain, shortness of breath, or cough. Otherwise, she is doing well this morning and has no other complaints. Objective Vitals/I&O Vital Signs Date Time Temp Pulse Resp B/P (MAP) Pulse Ox O2 Delivery O2 Flow Rate FiO2 10/09/17 20:00 98.4 96 20 97/66 (08) 98 Result Diagram: 10/09/17 0513 Objective Remarks GENERAL: Well-nourished, well-developed patient. CARDIOVASCULAR: Regular rate and rhythm without murmurs, gallops, or rubs. RESPIRATORY: Breath sounds equal bilaterally. No accessory muscle use. ABDOMEN/GI: Abdomen soft, non-tender, bowel sounds present. Incision: Clean, dry and intact. Fundus: Firm, non-tender at umbilicus. GENITOURINARY: Light to moderate bleeding. EXTREMITIES: No cyanosis or edema, non-tender, without signs of DVT. Medications and IVs Current Medications Medications (Trade) Dose Ordered Sig/Chelsi Route Start Time Stop Time Status Last Admin Cefazolin Sodium/ Dextrose 50 ml @ 100 mls/hr [facility]ISTRY IV 10/08/17 10:00 10/12/17 09:59 (Bicitra Liq) 30 ml [facility]IST[facility] PO 10/08/17 10:30 10/12/17 10:29 (NS Flush) 2 ml BID IV FLUSH 10/08/17 21:00 (NS Flush) 2 ml UNSCH PRN IV FLUSH 10/08/17 14:00 (Mylicon Chew) 80 mg QID PRN PO 10/08/17 14:00 10/09/17 16:26 (Tylenol) 650 mg Q6H PRN PO 10/08/17 14:00 (Motrin) 600 mg Q6H PRN PO 10/08/17 14:00 10/10/17 07:47 (Percocet 5-325 Mg) 1 tab Q4H PRN PO 10/08/17 14:00 10/10/17 04:55 (Percocet 5-325 Mg) 2 tab Q4H PRN PO 10/08/17 14:00 (Jayde-Colace) 2 tab Q12H PRN PO 10/08/17 14:00 10/10/17 07:47 (Ambien) 5 mg HS PRN PO 10/08/17 21:00 (Zofran Inj) 4 mg Q6H PRN IV PUSH 10/08/17 14:00 Assessment/Plan Problem List: (1) S/P repeat low transverse ICD Codes: Z98.891 - History of uterine scar from previous surgery Status: Acute Assessment and Plan 42 y/o female who is POD# 2 s/p repeat C/S. -Continue routine care. -Percocet and Motrin PRN pain. -Encouraged OOB. Advised pelvic rest for 6 wks. Will need a f/u appt. in 1 wk for incision check. -Re: ctrl, she would like Mirena. -D/c home today Ely Garcia MD R1 Oct 10, 2017 08:07
[2017-10-10 08:43] LABS: HEMATOCRIT 22.5 % (35.0-46.0); HEMOGLOBIN 7.6 GM/DL (11.6-15.3); MEAN CELL VOLUME 84.8 FL (80.0-100.0); MEAN CORPUSCULAR HEMOGLOBIN 28.6 PG (27.0-34.0); MEAN CORPUSCULAR HGB CONC 33.7 % (32.0-36.0); MEAN PLATELET VOLUME 8.5 FL (7.0-11.0); PLATELET COUNT 248 TH/MM3 (150-450); RED BLOOD COUNT 2.66 MIL/MM3 (4.00-5.30); RED CELL DISTRIBUTION WIDTH 15.7 % (11.6-17.2); WHITE BLOOD COUNT 8.5 TH/MM3 (4.0-11.0)
--- NOTE | 2017-10-10 09:28 | HHI.DCPOC ---
Discharge Care Plan Diagnosis: (1) S/P repeat low transverse Report Symptoms to Your Doctor -Temperature above 100.5 degrees -Redness, of incision or excessive or foul smelling drainage -Unusual pain or calf pain -Increased vaginal bleeding -Painful or difficulty urinating -Feelings of extreme sadness or anxiety after 2 weeks Goals to Promote Your Health * To prevent worsening of your condition and complications * To maintain your health at the optimal level Directions to Meet Your Goals Take your medications as prescribed Follow your dietary instruction Follow activity as directed Ensure plenty of rest for recovery Drink fluids for hydration Keep your appointments as scheduled Take your immunizations and boosters as scheduled If your symptoms worsen call your PCP, if no PCP go to Urgent Care Center or Emergency Room Smoking is Dangerous to Your Health. Avoid second hand smoke Call the 24-hour crisis hotline for domestic abuse at Ely Garcia MD R1 Oct 10, 2017 09:28
== END 2017-10-10 17:33 | disposition home or self-care (01) | DRG 766 ==
LOC: H2EB 08:30 → H1EA 15:00
PROVIDERS: ADMIT Obstetrics & Gynecology; ATTEND Obstetrics & Gynecology
PROC: 10D00Z1 Extraction of Products of Conception, Low, Open Approach (ICD-10-PCS; principal; 2017-10-08)
DX: O34.211 Maternal care for low transverse scar from previous cesarean delivery (principal); Z37.0 Single live birth; Z3A.39 39 weeks gestation of pregnancy
CPT/HCPCS: 59025; 80307; 81001; 85025; 85027; 86850; 86900; 86901; J0131; J1100; J2274; J2370; J2405; J2590; J3010; J7120